=== PATIENT | male | born 1995 | race Caucasian/White ===

== ENCOUNTER 2017-06-29 21:54 | Emergency (ER) | payer SELFPAY ==
[2017-06-29 21:56] VITALS: BP 134/87; PULSE 62; RESP 16; TEMP 98; O2SAT 100
--- NOTE | 2017-06-29 22:12 | PD ---
HPI Chief Complaint: Laceration/Skin Injury Time Seen by Provider: 22:06 Travel History International Travel<30 days: No Contact w/Intl Traveler<30days: No Traveled to known affect area: No History of Present Illness HPI Patient comes emergency Department requesting suture removal from his left wrist that were placed 10 days ago. Patient reports he's been using soap and water keeping it dry and clean as possible as well as placing Neosporin. Patient denies any complaints or concerns with this. Denies anything making it better or worse. PFSH Past Medical History Medical History: Denies Significant Hx Social History Alcohol Use: No Tobacco Use: No Substance Use: No Allergies-Medications (Allergen,Severity, Reaction): Coded Allergies: Penicillins (Verified Allergy, Unknown, 06/29/17) Review of Systems Except as stated in HPI: all other systems reviewed are Neg Physical Exam Narrative GENERAL: Well-developed, overly nourished, in no acute distress, and non-ill appearing. SKIN: Focused skin assessment warm and dry. Well healing laceration noted volar surface left wrist. Sutures are in place they are dry clean intact. There is no crepitus, drainage, erythematous, or other signs of infection. HEAD: Atraumatic. Normocephalic. EYES: Pupils equal and round. EOMI. No scleral icterus. No injection or drainage. ENT: No nasal bleeding or discharge. Mucous membranes pink and moist. NECK: Trachea midline. Supple. No nuclear rigidity. RESPIRATORY: No accessory muscle use. No respiratory distress. MUSCULOSKELETAL: No obvious deformities. No clubbing. No cyanosis. No edema. Full range of motion. NEUROLOGICAL: Awake and alert. No obvious cranial nerve deficits. Motor grossly within normal limits. Normal speech. PSYCHIATRIC: Appropriate mood and affect; insight and judgment normal. Data Data Last Documented VS Vital Signs Date Time Temp Pulse Resp B/P (MAP) Pulse Ox O2 Delivery O2 Flow Rate FiO2 06/29/17 22:23 06/29/17 21:56 98.0 62 16 100 Orders Orders Ed Discharge Order (06/29/17 22:12) [facility] Medical Decision Making Medical Screen Exam Complete: Yes Emergency Medical Condition: No Differential Diagnosis Suture removal, wound check, wound infection, other Narrative Course Patient in no obvious distress upon re-evaluation. Any questions/concerns in reference to patient diagnosis/condition discussed and clarified prior to patient's discharge.Follow up with patient's primary physician or primary care clinic as needed. Instructed patient to return to ED immediately, if symptoms return/worsen. Patient showed understanding of above instructions. Further instructions and recommendations were detailed in discharge paperwork. Patient ambulated without difficulty out of ED at discharge. Procedures Procedure Narrative Verbal consent was obtained. 8 sutures were easily removed. There was no complications. Patient tolerated procedure well. Diagnosis Primary Impression: Visit for suture removal Patient Instructions: General Instructions, Stitches Removal (DC) Additional Instructions: Follow-up with your primary care physician as needed. Keep wound dry and clean as possible using soap and water. Use Neosporin to promote healing. Return to the emergency department if symptoms get worse. Disposition: 01 DISCHARGE HOME Condition: Stable Bennie Sinha Jun 29, 2017 22:12
== END 2017-06-29 22:37 | disposition home or self-care (01) ==
LOC: NEPK 21:54
DX: Z48.02 Encounter for removal of sutures (principal); Z88.0 Allergy status to penicillin
CPT/HCPCS: 99281